=== PATIENT | female | born 1975 | race Caucasian/White ===

== ENCOUNTER 2017-09-21 12:45 | Emergency (ER) | payer MEDICAID ==
[~2017-09-21] VITALS: Ht 157.5 cm; Wt 88.5 kg
[2017-09-21 12:49] VITALS: Ht 157.5 cm; Wt 88.5 kg
[2017-09-21 14:41] VITALS: BP 130/73
== END 2017-09-21 14:41 | disposition home or self-care (01) ==
LOC: ED 12:45
DX: M76.62 Achilles tendinitis, left leg (principal)
CPT/HCPCS: Q0092

== ENCOUNTER 2018-10-19 08:25 | Emergency (ER) | payer MEDICAID ==
[~2018-10-19] VITALS: Ht 162.6 cm; Wt 86.2 kg
[2018-10-19 08:30] VITALS: Ht 162.6 cm; Wt 86.2 kg
[2018-10-19 09:35] VITALS: BP 148/78
== END 2018-10-19 09:50 | disposition home or self-care (01) ==
LOC: ED 08:25
DX: R10.13 Epigastric pain (principal)